=== PATIENT | female | born 1950 | race Hispanic/Latino ===

== ENCOUNTER → 2022-09-29 | Outpatient (CLI) | payer OTHER, MEDICARE ==
[~2022-09-29] MED LIST: AMLO2.5T4 PO; ASPI-556 PO; ATOR10TA69 PO; CALC-190 PO
== END | disposition home or self-care (01) ==
LOC: RAH 07:58
PROVIDERS: ATTEND Internal Medicine
DX: N28.1 Cyst of kidney, acquired (principal); R31.29 Other microscopic hematuria
CPT/HCPCS: 74176